=== PATIENT | male | born 1960 | race Caucasian/White ===

== ENCOUNTER 2021-07-27 21:52 | Emergency (ER) | payer OTHER ==
[~2021-07-27] VITALS: Ht 165.1 cm; Wt 72.6 kg
[2021-07-27 21:52] VITALS: BP 138/76
[2021-07-27 22:30] VITALS: BP 138/76
[2021-07-27] MEDS ORDERED: NAPR-54 PO (22:55)
[2021-07-27] MEDS ORDERED: ACETAMINOPHEN EXTRA STRENGTH 500 MG TAB PO ONE (22:55)
== END 2021-07-27 23:48 ==
LOC: MED 21:52
DX: S20.212A Contusion of left front wall of thorax, initial encounter (principal); Z02.89 Encounter for other administrative examinations; Z71.6 Tobacco abuse counseling; M19.90 Unspecified osteoarthritis, unspecified site; F17.210 Nicotine dependence, cigarettes, uncomplicated; Z79.1 Long term (current) use of non-steroidal anti-inflammatories (NSAID); V89.2XXA Person injured in unspecified motor-vehicle accident, traffic, initial encounter; Y93.89 Activity, other specified; Y92.410 Unspecified street and highway as the place of occurrence of the external cause; Y99.8 Other external cause status
CPT/HCPCS: 71045; 99283